=== PATIENT | female | born 1975 | race Caucasian/White ===

== ENCOUNTER 2018-06-05 09:46 | Emergency (ER) | payer BC, OTHER ==
[~2018-06-05] VITALS: Ht 170.2 cm; Wt 109.8 kg
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
[2018-06-05] MEDS ORDERED: LORAZEPAM 1 MG TABLET ONE (10:28)
[2018-06-05] MEDS ORDERED: DIVALPROEX SODIUM 500 MG TABLET.DR PO ONE ×2 (10:28→10:30)
[2018-06-05 10:29] LABS: BASOPHILS # (AUTO) 0.1 /CMM (0.0-0.2); BASOPHILS % (AUTO) 0.6 % (0.0-2.0); EOSINOPHILS % (AUTO) 0.3 % (0.0-6.0); HEMATOCRIT 41 % (33-45); HEMOGLOBIN 13.9 g/dL (11.5-14.8); LYMPHOCYTES # (AUTO) 0.7 /CMM (0.8-4.8); LYMPHOCYTES % (AUTO) 8.2 % (20.0-44.0); MEAN CORPUSCULAR HGB CONC 34 g/dl (31.0-36.0); MEAN CORPUSCULAR VOLUME 99 fL (82-100); MONOCYTES # (AUTO) 1.4 /CMM (0.1-1.30); MONOCYTES % (AUTO) 14.8 % (2.0-12.0); NEUTROPHILS % (AUTO) 76.1 % (43.0-81.0); PLATELET COUNT (AUTO) 147 /CMM (150-450); RED BLOOD CELL COUNT(AUTO) 4.16 MIL/uL (4.0-5.2); WHITE BLOOD COUNT (AUTO) 9.2 K/uL (4.3-11.0)
[2018-06-05] MEDS ORDERED: LORAZEPAM 1 MG TABLET PO ONE (10:30)
[2018-06-05 10:41] LABS: ALANINE AMINOTRANSFERASE 99 U/L (12-78); ALBUMIN 3.8 g/dL (3.4-5.0); ALCOHOL, BLOOD < 3 mg/dL (0-0); ALKALINE PHOSPHATASE 80 U/L (46-116); ASPARTATE AMINOTRANSFERASE 186 U/L (15-37); BILIRUBIN,DIRECT 0.2 mg/dL (0.0-0.2); BILIRUBIN,TOTAL 0.8 mg/dL (0.2-1.0); CALCIUM, SERUM 8.6 mg/dL (8.5-10.1); CARBON DIOXIDE 20 mmol/L (21-32); CHLORIDE 100 mmol/L (98-107); CREATININE 0.8 mg/dL (0.6-1.3); GLUCOSE 155 mg/dL (74-106); POTASSIUM 3.1 mmol/L (3.5-5.1); SODIUM SERUM 135 mmol/L (136-145); TOTAL PROTEIN, SERUM 7.1 g/dL (6.4-8.2)
[2018-06-05 10:42] LABS: ACETAMINOPHEN 0 ug/ml (10-30); SALICYLATE 2.4 mg/dL (2.8-20.0)
[2018-06-05 10:51] LABS: VALPROIC ACID < 3 ug/mL (50-100)
[2018-06-05 10:56] LABS: UREA NITROGEN, BLOOD 15 mg/dL (7-18)
--- NOTE | 2018-06-05 12:00 | NUR ---
PATIENT IN BED, A/OX1-2 APPEARS TO BE CONFUSED AT TIMES, BREATHING EVEN AND UNLABORED, NO SOB NOTED. WILL CONTINUE TO MONITOR.
[2018-06-05] MEDS ORDERED: POTASSIUM CHLORIDE 20 MEQ TAB.PRT.SR PO ONE ×2 (12:22→12:30)
[2018-06-05 12:39] LABS: APPEARANCE,URINE Clear (CLEAR); BILIRUBIN,URINE SMALL (NEGATIVE); BLOOD, URINE Trace-lysed Ery/uL (NEGATIVE); COLOR,URINE Dark (YELLOW); KETONES,URINE 40 (NEGATIVE); LEUKOCYTE ESTERASE ,URINE Negative (NEGATIVE); NITRITE, URINE Negative (NEGATIVE); PROTEIN,URINE 100 mg/dl (NEGATIVE); UGLUCOSE Negative (NEGATIVE); UROBILINOGEN,URINE 0.2 EU/dL (0.2)
[2018-06-05 12:59] LABS: BACTERIA,URINE Few /HPF (None Seen); RBC,URINE 0-2 /HPF (0-2); SQUAMOUS EPITHELIAL CELL,UR Rare /HPF (None Seen); WBC,URINE 0-2 /HPF (0-3)
--- NOTE | 2018-06-05 14:48 | NUR ---
PT WAS SEEN BY Lexi HICKS LCSW AND IS NOW ON A 5150 HOLD.
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
--- NOTE | 2018-06-05 17:10 | NUR ---
[facility] CALLED WITH TRANSFER INFORMATION. SPOKE TO JOSEF AT [place]. NURSE TO NURSE : PT IS GOING TO [facility], RM 2305I. ADMITTING MD: DR MARROQUIN
--- NOTE | 2018-06-05 17:10 | NUR ---
PER JOSEF, CALL NURSE TO NURSE REPORT AT 1900.
--- NOTE | 2018-06-05 17:21 | NUR ---
CALLED DAVID RE: TRANPORT TO [facility]. ETA IS [phone]. TRIP # [id number]
--- NOTE | 2018-06-05 19:04 | NUR ---
REPORT GIVEN TO MARLON HATFIELD
--- NOTE | 2018-06-05 19:04 | NUR ---
CALLING REPORT TO [facility]
--- NOTE | 2018-06-05 19:18 | NUR ---
PT TRANSFERED OUT.
[2018-06-05 19:19] VITALS: BP 151/87
== END 2018-06-05 19:20 ==
LOC: ER 09:55
DX: F23 Brief psychotic disorder (principal); E87.6 Hypokalemia
CPT/HCPCS: 36415; 80048; 80076; 80164; 80305; 80307; 80329; 81001; 84703; 85025; 87081; 99285; A4606; G0480; 81000-TC

== ENCOUNTER 2021-10-05 21:06 | Emergency (ER) | payer BC, OTHER ==
[~2021-10-05] VITALS: Ht 170.2 cm; Wt 112.5 kg
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
--- NOTE | 2021-10-05 21:26 | NUR ---
COVID SWAB DONE AND SENT TO LAB
--- NOTE | 2021-10-05 21:38 | NUR ---
ER CARD PROCESSING CLERK AT BEDSIDE
[2021-10-05 21:51] LABS: BASOPHILS # (AUTO) 0.1 K/uL (0.0-0.2); BASOPHILS % (AUTO) 0.5 % (0.0-2.0); EOSINOPHILS % (AUTO) 0.5 % (0.0-6.0); HEMATOCRIT 40 % (33-45); HEMOGLOBIN 13.1 g/dL (11.5-14.8); LYMPHOCYTES # (AUTO) 0.8 K/uL (0.8-4.8); LYMPHOCYTES % (AUTO) 7.4 % (20.0-44.0); MEAN CORPUSCULAR HGB CONC 33 g/dl (31.0-36.0); MEAN CORPUSCULAR VOLUME 98 fL (82-100); MONOCYTES # (AUTO) 1.3 K/uL (0.1-1.30); MONOCYTES % (AUTO) 11.9 % (2.0-12.0); NEUTROPHILS # (AUTO) 9.1 K/uL (1.8-8.9); NEUTROPHILS % (AUTO) 79.7 % (43.0-81.0); PLATELET COUNT (AUTO) 220 K/uL (150-450); RED BLOOD CELL COUNT(AUTO) 4.07 MIL/uL (4.0-5.2); WHITE BLOOD COUNT (AUTO) 11.4 K/uL (4.3-11.0)
[2021-10-05 22:11] LABS: CALCIUM, SERUM 8.7 mg/dL (8.5-10.1); CARBON DIOXIDE 23 mmol/L (21-32); CHLORIDE 105 mmol/L (98-107); CREATININE 0.7 mg/dL (0.6-1.3); GLUCOSE 99 mg/dL (74-106); POTASSIUM 3.2 mmol/L (3.5-5.1); SODIUM SERUM 139 mmol/L (136-145); UREA NITROGEN, BLOOD 9 mg/dL (7-18)
[2021-10-05 22:18] LABS: ACETAMINOPHEN 0 ug/ml (10-30); ALANINE AMINOTRANSFERASE 32 U/L (12-78); ALBUMIN 3.6 g/dL (3.4-5.0); ALCOHOL, BLOOD < 3 mg/dL (0-0); ALKALINE PHOSPHATASE 85 U/L (46-116); ASPARTATE AMINOTRANSFERASE 42 U/L (15-37); BILIRUBIN,DIRECT 0.2 mg/dL (0.0-0.2); BILIRUBIN,TOTAL 0.5 mg/dL (0.2-1.0); TOTAL PROTEIN, SERUM 7.2 g/dL (6.4-8.2)
--- NOTE | 2021-10-05 22:46 | NUR ---
URINE COLLECTED AND SENT TO LAB
[2021-10-05 23:13] LABS: BILIRUBIN,URINE SMALL (NEGATIVE); COLOR,URINE YELLOW (YELLOW); LEUKOCYTE ESTERASE ,URINE NEGATIVE (NEGATIVE); NITRITE, URINE NEGATIVE (NEGATIVE); PROTEIN,URINE 30 mg/dl (NEGATIVE); UGLUCOSE NEGATIVE (NEGATIVE); UROBILINOGEN,URINE 0.2 EU/dL (0.2)
[2021-10-05 23:41] LABS: BACTERIA,URINE Few /HPF (None Seen); FINE GRANULAR CASTS,URINE Rare /LPF (None Seen); SQUAMOUS EPITHELIAL CELL,UR Few /HPF (None Seen)
--- NOTE | 2021-10-05 23:48 | NUR ---
UPDATED ZORAN (MOTHER) [phone] PER ZORAN PT'S PMD: DR. PRIETO GOES TO [facility] AT [facility] [phone]
--- NOTE | 2021-10-06 00:04 | NUR ---
CALLED ART PMO LEAD. HE WILL EVALUATE PATIENT.
--- NOTE | 2021-10-06 00:50 | NUR ---
ART CRISIS TEAM AT PT'S BEDSIDE FOR EVAL
[2021-10-06] MEDS ORDERED: HALOPERIDOL LACTATE INJ 5 MG/ML VIAL ONE (01:00)
[2021-10-06] MEDS ORDERED: LORAZEPAM INJ 2 MG/ML VIAL ONE ×2 (01:00→22:53)
[2021-10-06] MEDS ORDERED: HALOPERIDOL LACTATE INJ 5 MG/ML VIAL IM ONE (01:00)
[2021-10-06] MEDS ORDERED: LORAZEPAM INJ 2 MG/ML VIAL IM ONE ×2 (01:00→23:00)
[2021-10-06] MEDS ORDERED: diphenhydrAMINE HCL 50 MG/ML VIAL ONE ×2 (01:00→22:56)
[2021-10-06] MEDS ORDERED: diphenhydrAMINE HCL 50 MG/ML VIAL IM ONE ×2 (01:00→23:30)
--- NOTE | 2021-10-06 05:15 | NUR ---
PT SLEEPING BUT AROUSABLE. TOLERATING R/A WELL WITH NO SOB, RESP EVEN AND NON LABORED.
--- NOTE | 2021-10-06 07:34 | NUR ---
ELAINE SANDOVAL [phone]
[2021-10-06] MEDS ORDERED: OLANZAPINE 10 MG VIAL IM ONE ×4 (10:28→22:00)
--- NOTE | 2021-10-06 12:02 | NUR ---
ZORAN MOM CALLED [phone] LANI CAPONE [phone] FRIEND OF FAMILY CAROLINA LUCIA DAUGHTER [phone]
--- NOTE | 2021-10-06 15:03 | NUR ---
Naomi Avalos (twin sister) [phone]
--- NOTE | 2021-10-06 21:30 | NUR ---
PT PLACED ON 5150 HOLD BY ELFEGO RAMÍREZ AUTOMATIC PATTERN EDGER.
--- NOTE | 2021-10-06 22:42 | NUR ---
PT SLEEPING IN BED. NO ACUTE DISTRESS AT THIS TIME. SAFETY PRECAUTIONS CONTINUED
--- NOTE | 2021-10-06 23:04 | NUR ---
PT RESTLESS, AGGITATED, & YELLING. NONPHARMOCOLOGICAL INTERVENTION MANAGEMENT DONE BUT STILL AGGITATED. ADMINISTERED ATIVAN 2MG & BENADRYL 50MG IM ORDERED. WILL REASSESS PT'S BEHAVIOR.
--- NOTE | 2021-10-07 04:17 | NUR ---
PT SLEEPING WELL, IN NO ACUTE DISTRESS AT THIS TIME. SAFETY MEASURES CONTINUED.
--- NOTE | 2021-10-07 08:49 | NUR ---
Psych hospital placement: faxed clinicals to the following hospital for psychiatric admission: [facility] fax:[phone] tel:[phone] [facility] tel:[phone] FAX:[phone] [facility] FAX: [phone] TEL:[phone] EXT. [phone] [facility] FAX: [phone] TEL:[phone]
--- NOTE | 2021-10-07 09:50 | NUR ---
per zay rawls. [facility] will take patient as long as she no longer on restraints. # foro report, , kvng
--- NOTE | 2021-10-07 10:27 | NUR ---
Report given to Zay from [facility]
--- NOTE | 2021-10-07 10:50 | NUR ---
Jef Lundy (friend) [phone]
--- NOTE | 2021-10-07 11:09 | NUR ---
PATIENT ACCEPTED AT [facility]. SPOKE TO WILIAM OF [facility] FOR REPORT. WILL CALL BACK FOR POTASSIUM, RAPID COVID RESULT AND ETA. [phone]
--- NOTE | 2021-10-07 11:18 | NUR ---
PLEASE FAX OVER COVID AND POTASSIUM RESULTS TO [place] AT [phone]. PHONE NUMBER IS [phone]
--- NOTE | 2021-10-07 11:24 | NUR ---
RAPID COVID SWAB DONE AND SENT TO LAB
[2021-10-07 11:48] LABS: CALCIUM, SERUM 8.8 mg/dL (8.5-10.1); CREATININE 0.7 mg/dL (0.6-1.3); POTASSIUM 3.5 mmol/L (3.5-5.1)
--- NOTE | 2021-10-07 13:04 | NUR ---
UPDATED [facility] NURSE WITH POTASSIUM LEVEL AND COVID RESULT. PATIENT OK TO BE TRANSFERRED TO [facility]. ROOM 2311.
--- NOTE | 2021-10-07 13:10 | NUR ---
SPOKE WITH TJ AND SET UP [facility] TRANSPORT TO [facility]. ETA IS 1400
--- NOTE | 2021-10-07 13:23 | NUR ---
UPDATED JOHN DAVID ABOUT PATIENT ETA.
[2021-10-07 14:02] VITALS: BP 132/80
--- NOTE | 2021-10-07 14:32 | NUR ---
report given to [facility] unit [facility]. picked up patient in stable condition.
--- NOTE | 2021-10-07 14:50 | NUR ---
CALLED SISTER HUGO AND UPDATED SISTER THAT PATIENT WAS TRANSFERRED TO [facility].
== END 2021-10-07 14:45 ==
LOC: ER 21:07
DX: F20.9 Schizophrenia, unspecified (principal); Z20.822 Contact with and (suspected) exposure to COVID-19; Z88.0 Allergy status to penicillin
CPT/HCPCS: 99285; 85025; 80048 ×2; 80076; 84703; 81001; 36415 ×2; 87426 ×2; 80143; 80320; 80307; 96372 ×2; C9803 ×2; J2060 ×2; J1200 ×2; J1630; J3490 ×2; G0480

== ENCOUNTER 2022-01-05 20:03 | Emergency (ER) | payer BC ==
[~2022-01-05] VITALS: Ht 170.2 cm; Wt 104.3 kg
[2022-01-05 20:22] VITALS: BP 114/76
--- NOTE | 2022-01-05 20:22 | NUR ---
BIBRA FOR RASHES ON THE HAND AND FEET
[2022-01-05] MEDS ORDERED: diphenhydrAMINE HCL 50 MG/ML VIAL IM ONE (20:30)
[2022-01-05] MEDS ORDERED: CEPHALEXIN MONOHYDRATE 500 MG CAPSULE PO ONE ×2 (20:30→20:47)
[2022-01-05] MEDS ORDERED: predniSONE 50 MG TABLET PO ONE (20:30)
[2022-01-05] MEDS ORDERED: SULFAMETH/TRIMETH 800/160 MG 1 UDTAB TABLET PO ONE (20:30)
[2022-01-05] MEDS ORDERED: HYDR28.32 TP (20:46)
[2022-01-05] MEDS ORDERED: PRED20TA PO (20:46)
[2022-01-05] MEDS ORDERED: CEPH500T PO (20:46)
[2022-01-05] MEDS ORDERED: SULF1TAB48 PO (20:46)
[2022-01-05] MEDS ORDERED: DIPH25CA83 PO (20:46)
[2022-01-05] MEDS ORDERED: SULFAMETH/TRIMETH 800/160 MG 1 UDTAB TABLET ONE (20:47)
[2022-01-05] MEDS ORDERED: diphenhydrAMINE HCL 50 MG/ML VIAL ONE (20:47)
[2022-01-05] MEDS ORDERED: predniSONE 20 MG TABLET ONE ×2 (20:47→20:51)
--- NOTE | 2022-01-05 21:00 | NUR ---
Patient discharged to home in stable condition. RX Written and verbal after care instructions given. Patient verbalizes understanding of instruction. PT ambulatory with a steady gait
== END 2022-01-05 21:01 | disposition home or self-care (01) ==
LOC: ER 20:30
DX: L03.116 Cellulitis of left lower limb (principal); L03.115 Cellulitis of right lower limb; F20.9 Schizophrenia, unspecified; Z79.899 Other long term (current) drug therapy
CPT/HCPCS: 99284; 96372; J1200; J7512 ×2

== ENCOUNTER 2022-03-31 14:04 | Emergency (ER) | payer BC, OTHER ==
[~2022-03-31] VITALS: Ht 175.3 cm; Wt 113.4 kg
[~2022-03-31 14:04] MED LIST: CEPH500T PO; DIPH25CA83 PO; HYDR28.32 TP; PRED20TA PO; SULF1TAB48 PO
--- NOTE | 2022-03-31 14:30 | NUR ---
Pt NOT sensible. Easily agitated and restless at times. NOT directable and UNABLE to follow commands MD made aware of patients condition
[2022-03-31 14:42] LABS: BASOPHILS # (AUTO) 0.1 K/uL (0.0-0.2); BASOPHILS % (AUTO) 0.6 % (0.0-2.0); EOSINOPHILS % (AUTO) 0.6 % (0.0-6.0); HEMATOCRIT 40 % (33-45); HEMOGLOBIN 12.9 g/dL (11.5-14.8); LYMPHOCYTES # (AUTO) 1.9 K/uL (0.8-4.8); LYMPHOCYTES % (AUTO) 14.6 % (20.0-44.0); MEAN CORPUSCULAR HGB CONC 32 g/dl (31.0-36.0); MEAN CORPUSCULAR VOLUME 96 fL (82-100); MONOCYTES # (AUTO) 1.3 K/uL (0.1-1.30); MONOCYTES % (AUTO) 10.2 % (2.0-12.0); NEUTROPHILS # (AUTO) 9.5 K/uL (1.8-8.9); PLATELET COUNT (AUTO) 252 K/uL (150-450); RED BLOOD CELL COUNT(AUTO) 4.16 MIL/uL (4.0-5.2); WHITE BLOOD COUNT (AUTO) 12.8 K/uL (4.3-11.0)
[2022-03-31 15:19] LABS: CALCIUM, SERUM 8.7 mg/dL (8.5-10.1); CARBON DIOXIDE 21 mmol/L (21-32); CHLORIDE 109 mmol/L (98-107); CREATININE 0.9 mg/dL (0.6-1.3); GLUCOSE 97 mg/dL (74-106); POTASSIUM 3.5 mmol/L (3.5-5.1); SODIUM SERUM 145 mmol/L (136-145); UREA NITROGEN, BLOOD 19 mg/dL (7-18)
[2022-03-31 15:26] LABS: ALANINE AMINOTRANSFERASE 27 U/L (12-78); ALBUMIN 3.8 g/dL (3.4-5.0); ALCOHOL, BLOOD < 3 mg/dL (0-0); ALKALINE PHOSPHATASE 71 U/L (46-116); ASPARTATE AMINOTRANSFERASE 42 U/L (15-37); BILIRUBIN,DIRECT 0.2 mg/dL (0.0-0.2); BILIRUBIN,TOTAL 0.6 mg/dL (0.2-1.0); TOTAL PROTEIN, SERUM 6.8 g/dL (6.4-8.2)
[2022-03-31] MEDS ORDERED: HALOPERIDOL LACTATE INJ 5 MG/ML VIAL IV ONE (15:30)
[2022-03-31] MEDS ORDERED: HALOPERIDOL LACTATE INJ 5 MG/ML VIAL ONE (16:03)
--- NOTE | 2022-03-31 19:45 | NUR ---
COVID ANTIGEN SWAB COLLECTED AND SENT TO LAB
--- NOTE | 2022-03-31 20:28 | NUR ---
URINE COLLECTED AND SENT TO LAB
--- NOTE | 2022-03-31 20:53 | NUR ---
[facility] ([facility]) [phone]
--- NOTE | 2022-03-31 20:53 | NUR ---
Scarlett forrest in [facility] - 03/31/22 at 2053 by LSTOOR FORD FERGUSON) [phone]
[2022-03-31 21:08] LABS: BILIRUBIN,URINE 2+ (NEGATIVE); COLOR,URINE YELLOW (YELLOW); LEUKOCYTE ESTERASE ,URINE NEGATIVE (NEGATIVE); NITRITE, URINE NEGATIVE (NEGATIVE); PH,URINE 5.5 (5.0-8.0); PROTEIN,URINE NEGATIVE (NEGATIVE); UGLUCOSE NEGATIVE (NEGATIVE); UROBILINOGEN,URINE 0.2 EU/dL (0.2)
[2022-03-31 21:40] LABS: BACTERIA,URINE None seen /HPF (None Seen); MUCUS,URINE Few /LPF (None Seen); RBC,URINE 0-2 /HPF (0-2); SQUAMOUS EPITHELIAL CELL,UR 0-2 /HPF (None Seen); WBC,URINE 0-2 /HPF (0-3)
--- NOTE | 2022-04-01 00:12 | NUR ---
OFFERED PT WATER; TOLERATING WELL.
--- NOTE | 2022-04-01 01:15 | NUR ---
PT PLACED ON 5150 HOLD FOR DTS/ GD AT 04/01/22 0115. HOLD PLACED BY KATHIA PAYAN MATHEMATICS INSTRUCTOR CRISIS TEAM
--- NOTE | 2022-04-01 01:19 | NUR ---
PT SEEN BY ART CRISIS TEAM
--- NOTE | 2022-04-01 02:20 | NUR ---
PER JOSEF [facility] INTAKE, NEEDS COVID PCR RESULT FOR ACCEPTANCE FAX [phone]
--- NOTE | 2022-04-01 02:31 | NUR ---
COVID PCR SWAB COLLECTED AND SENT TO LAB
--- NOTE | 2022-04-01 06:32 | NUR ---
PT SLEEPING. RR EVEN AND NONLABORED. ALL NEEDS MET AT THIS TIME.
--- NOTE | 2022-04-01 09:40 | NUR ---
FAXED FACESHEET, CLINICALS TO [facility]. STILL WAITING ON PCR RESULTS FOR [place].
--- NOTE | 2022-04-01 09:52 | NUR ---
Placement: DAISY faxed clinicals to the following psych hositals for possible psych admission: [facility] TEL: [phone] fax: [phone] [facility] [place] Laura TEL: [phone] FAX: [phone] Laura Allie Velasco (any age 13 and up) fax:[phone] tel:[phone]
--- NOTE | 2022-04-01 10:03 | NUR ---
FAXED CLINICALS TO Mel [facility] INTAKE [phone]
--- NOTE | 2022-04-01 10:14 | NUR ---
MARIELLE FROM [facility] ASKED FOR REPORT , AWAITING FOR CLINICALS TO BE SENT BY ROTARY CUTTER OPERATOR
--- NOTE | 2022-04-01 11:27 | NUR ---
REPORT GIVEN TO ISELA MASON OF [place]. AWAITING PCR RESULTS. ONCE RESULTED, FAX TO [phone] (INTAKE DEPARTMENT)
--- NOTE | 2022-04-01 12:00 | NUR ---
[facility] CALLED FOR PT COVID ANTIGEN. FAXED TO [phone]
--- NOTE | 2022-04-01 12:26 | NUR ---
Pt. was accepted to [facility] [[address], [place] [address]] [phone] per Radha from their intake dept. TEL: [phone] fax: [phone]. Pt. will be in East Unit room #119/B under the care of Dr. Becerra. Nurse to nurse report to be given called into [phone]. SW notified Annie art. Per Radha they will arrange transport and call SW with ETA.
--- NOTE | 2022-04-01 12:57 | NUR ---
CALLED [phone] FOR REPORT, NO ANSWER, LEFT .
--- NOTE | 2022-04-01 13:18 | NUR ---
CALLED [phone] FOR REPORT, TRANSFERRED TWICE, NO ONE ANSWERED. LEFT VM. WILL CALL BACK.
[2022-04-01 14:53] VITALS: BP 131/70
--- NOTE | 2022-04-01 14:55 | NUR ---
REPORT GIVEN TO HUSSEIN MASON OF [facility] DIRECT PHONE: [phone]
--- NOTE | 2022-04-01 15:10 | NUR ---
AMBULANCE ARRIVED FOR TRANSPORT. CREW GIVEN FACESHEET & PACKET
--- NOTE | 2022-04-01 15:25 | NUR ---
PICKED UP BY PA IN STABLE CONDITION, WILL BE BROUGHT TO [facility]. ALL BELONGINGS BROUGHT WITH PATIENT. CLINICALS GIVEN TO EMT.
== END 2022-04-01 15:30 ==
LOC: ER 14:06
DX: F23 Brief psychotic disorder (principal); F19.10 Other psychoactive substance abuse, uncomplicated; F20.9 Schizophrenia, unspecified; Z20.822 Contact with and (suspected) exposure to COVID-19; Z88.0 Allergy status to penicillin; Z91.51 Personal history of suicidal behavior
CPT/HCPCS: 99291; 96372; 85025; 80048; 80076; 84703; 81001; 36415; 87426; 80143; 80320; 80307; J1630; C9803 ×2; U0003; G0480